=== PATIENT | male | born 1970 | race Two or more races ===

== ENCOUNTER 2017-04-22 06:45 | Emergency (ER) | payer SELFPAY ==
[~2017-04-22] VITALS: Ht 182.9 cm; Wt 83.9 kg
--- NOTE | 2017-04-22 06:50 | NUR ---
TO BED 3 A 46 YO MALE PATIENT BB RA; RIGHT LOWER QUADRAND ABDL AND PELVIC PAIN CAUSED BY "HERNIA." PER PATIENT HE WAS AT A HOSPITAL YESTERDAY FOR THE SAME THING, AND "THEY ONLY PUSHED IT BACK IN," HOWEVER, TODAY AGAIN, THE HERNIA IS OUT AND IT IS PAINFUL PER PATIENT. NAD NOTED. VSS. NONDIAPHORETIC. COMFORT MEASURES RENDERED.
--- NOTE | 2017-04-22 06:56 | NUR ---
Born at bedside to belen.
--- NOTE | 2017-04-22 07:09 | NUR ---
Dr Garces was able to reduce the hernia back in, gladis well by patient. Patient discharged in stable condition. Written and verbal after care instructions given. Patient verbalizes understanding of instruction. Patient is ambulatory with steady gait. Provided food to eat. No further complaints.
[2017-04-22 07:10] VITALS: BP 123/100
== END 2017-04-22 07:11 | disposition home or self-care (01) ==
LOC: ER 06:47
DX: K40.90 Unilateral inguinal hernia, without obstruction or gangrene, not specified as recurrent (principal); Z59.0 Homelessness
CPT/HCPCS: 99283; A4606; Z7610